=== PATIENT | female | born 2000 | race Caucasian/White ===

== ENCOUNTER → 2024-02-01 08:02 | Outpatient (REF) | payer OTHER, SELFPAY | LOC: RAD 08:02 | PROVIDERS: ATTENDING PHYSICIAN Nurse Practitioner Family | DX: Z34.91 Encounter for supervision of normal pregnancy, unspecified, first trimester (principal) | CPT/HCPCS: 76801 ==

== ENCOUNTER → 2024-02-18 07:16 | Outpatient (REF) | payer OTHER, SELFPAY | LOC: PNTC 07:16 | PROVIDERS: ATTENDING PHYSICIAN Obstetrics & Gynecology | DX: Z36.82 Encounter for antenatal screening for nuchal translucency (principal) | CPT/HCPCS: 76801; 76813 ==

== ENCOUNTER → 2024-04-21 07:08 | Outpatient (REF) | payer OTHER, SELFPAY | LOC: PNTC 07:08 | PROVIDERS: ATTENDING PHYSICIAN Obstetrics & Gynecology | DX: O35.8XX0 Maternal care for other (suspected) fetal abnormality and damage, not applicable or unspecified (principal); O46.90 Antepartum hemorrhage, unspecified, unspecified trimester | CPT/HCPCS: 76811 ==

== ENCOUNTER → 2024-05-19 07:11 | Outpatient (REF) | payer OTHER, SELFPAY | LOC: PNTC 07:11 | PROVIDERS: ATTENDING PHYSICIAN Obstetrics & Gynecology | DX: O99.320 Drug use complicating pregnancy, unspecified trimester (principal) | CPT/HCPCS: 76816 ==

== ENCOUNTER → 2024-06-16 06:59 | Outpatient (REF) | payer OTHER, SELFPAY | LOC: PNTC 06:59 | PROVIDERS: ATTENDING PHYSICIAN Obstetrics & Gynecology | DX: O99.320 Drug use complicating pregnancy, unspecified trimester (principal); O35.5XX0 Maternal care for (suspected) damage to fetus by drugs, not applicable or unspecified | CPT/HCPCS: 76816 ==

== ENCOUNTER → 2024-07-14 06:59 | Outpatient (REF) | payer OTHER, SELFPAY | LOC: PNTC 06:59 | PROVIDERS: ATTENDING PHYSICIAN Obstetrics & Gynecology | DX: O35.5XX0 Maternal care for (suspected) damage to fetus by drugs, not applicable or unspecified (principal); O41.8X20 Other specified disorders of amniotic fluid and membranes, second trimester, not applicable or unspecified | CPT/HCPCS: 76816 ==

== ENCOUNTER → 2024-08-11 07:13 | Outpatient (REF) | payer OTHER, SELFPAY | LOC: PNTC 07:13 | PROVIDERS: ATTENDING PHYSICIAN Obstetrics & Gynecology | DX: O35.5XX0 Maternal care for (suspected) damage to fetus by drugs, not applicable or unspecified (principal) | CPT/HCPCS: 59025; 76816 ==

== ENCOUNTER 2024-08-31 18:31 | Inpatient (IN) | payer OTHER, SELFPAY ==
[2024-08-31 18:53] VITALS: BP 136/83; BMI 29.9
[2024-08-31] MEDS: PENICILLIN 110 UNITS IV (19:31)
[2024-08-31] MEDS: LR 1000 IV (19:31)
[2024-08-31 19:54] LABS: % Basophils 0.5 % (0-2); % Eosinophils 0.7 % (0-6); % Immature Granulocytes 0.4 % (0-0.5); % Lymphocytes 21.3 % (20.5-51.1); % Monocytes 6.8 % (1.7-9.3); % Neutrophils 70.3 % (42.2-75.2); Absolute Basophils 0.1 10^3/uL (0-0.2); Absolute Eosinophils 0.1 10^3/uL (0-0.7); Absolute Monocytes 0.7 10^3/uL (0.1-0.6); Absolute Neutrophils 6.8 10^3/uL (1.4-6.5); Hematocrit 35.3 % (37.0-47.0); Hemoglobin 12.8 g/dL (12.0-16.0); Mean Corp Hgb Conc. 36.3 g/dL (33.0-37.0); Mean Corpuscular Hgb 32.2 pg (27.0-31.0); Mean Corpuscular Volume 88.7 fL (81.0-99.0); Nucleated Red Blood Cells % 0 %; Platelet Count 223 10^3/uL (130-400); Red Blood Cell Count 3.98 10^6/uL (4.20-5.40); Red Cell Dist. Width 13.1 % (11.5-14.5); White Blood Cell Count 9.6 10^3/uL (4.8-10.8)
[2024-08-31 20:13] LABS: Amphetamines Positive (Negative); Barbiturates Negative (Negative); Benzodiazepines Negative (Negative); Buprenorphine Negative (Negative); Cocaine Negative (Negative); Marijuana Negative (Negative); Methadone Negative (Negative); Methamphetamines Negative (Negative); Opiates Negative (Negative); Phencyclidine Negative (Negative); Tricyclic Antidepressants Negative (Negative)
[2024-08-31 20:48] LABS: Fentanyl, Urine Negative (Negative)
[2024-08-31] MEDS: PITOCIN 30 UNITS/NSS 500 ML IV (23:14)
[2024-08-31] MEDS: PENICILLIN 55 UNITS IV (23:33)
[2024-09-01] MEDS: STADOL 1 MG IV ×2 (00:29→02:31)
[2024-09-01] MEDS: PENICILLIN 55 UNITS IV ×4 (03:31→15:31)
[2024-09-01] MEDS: LR 1000 IV ×2 (03:54→09:45)
[2024-09-01] MEDS: SUBLIMAZE 100 MCG EPIDURAL (04:05)
[2024-09-01] MEDS: FENTANYL/BUPIVACAINE 100 EPIDURAL ×2 (04:05→12:57)
[2024-09-01] MEDS: ZOFRAN 4 MG IV (07:55)
[2024-09-01] MEDS: PENICILLIN IV (20:16)
[2024-09-02] MEDS: MOTRIN 600 MG PO ×2 (02:21→08:06)
[2024-09-02 04:53] LABS: Hematocrit 29.3 % (37.0-47.0); Hemoglobin 10.7 g/dL (12.0-16.0)
[2024-09-02] MEDS: FEOSOL 325 MG PO (08:06)
[2024-09-02] MEDS: SENOKOT-S 1 TABLET PO (08:06)
[2024-09-02] MEDS: PRENATAL PLUS 1 TABLET PO (08:06)
[2024-09-02] MEDS: ADDERALL 10 MG PO (08:06)
[2024-09-02 14:47] LABS: Syphilis/T. pallidum Ab Reflex Negative (Negative)
[2024-09-03] MEDS: PRENATAL PLUS 1 TABLET PO (08:24)
[2024-09-03] MEDS: ADDERALL 10 MG PO (08:24)
[2024-09-03] MEDS: FEOSOL 325 MG PO (08:24)
[2024-09-03] MEDS: SENOKOT-S 1 TABLET PO (08:28)
== END 2024-09-03 12:25 | disposition home or self-care (01) | DRG 807 ==
LOC: LDRP 18:31
PROVIDERS: Obstetrics & Gynecology; ADMITTING PHYSICIAN Student in an Organized Health Care Education/Training Program; FAMILY PHYSICIAN Family Medicine
PROC: 4A1HXCZ Monitoring of Products of Conception, Cardiac Rate, External Approach (ICD-10-PCS; 2024-09-01)
PROC: 0UQMXZZ Repair Vulva, External Approach (ICD-10-PCS; 2024-09-01)
PROC: 10E0XZZ Delivery of Products of Conception, External Approach (ICD-10-PCS; 2024-09-01)
PROC: 0KQM0ZZ Repair Perineum Muscle, Open Approach (ICD-10-PCS; 2024-09-01)
DX: O48.0 Post-term pregnancy (principal); Z37.0 Single live birth; O99.824 Streptococcus B carrier state complicating childbirth; O99.344 Other mental disorders complicating childbirth; O77.0 Labor and delivery complicated by meconium in amniotic fluid; F90.9 Attention-deficit hyperactivity disorder, unspecified type; O70.1 Second degree perineal laceration during delivery; O90.81 Anemia of the puerperium; Z3A.40 40 weeks gestation of pregnancy; Z88.5 Allergy status to narcotic agent; Z79.899 Other long term (current) drug therapy
CPT/HCPCS: 80306; 80307; 80325; 80359; 85014; 85018; 85025; 86780; 86850; 86900; 86901; 87070; 99406